=== PATIENT | female | born 1995 | race Caucasian/White ===

== ENCOUNTER 2016-07-31 18:13 | Emergency (ER) | payer OTHER ==
[~2016-07-31] VITALS: Ht 157.5 cm; Wt 54.9 kg
[2016-07-31 18:31] VITALS: TEMP 37.4; Ht 157.5 cm; Wt 54.9 kg
[2016-07-31] MEDS ORDERED: SODIUM CHLORIDE 0.9% 1000ML 1,000 ML IV STA (19:55)
[2016-07-31] MEDS ORDERED: KETOROLAC TROMETHAMINE 30 MG/ML VIAL IV STA (20:12)
[2016-07-31] MEDS ORDERED: AZITTAB PO (20:18)
[2016-07-31] MEDS ORDERED: DEXT1CAP8 (20:18)
--- NOTE | 2016-07-31 20:28 | DIAGNOSTIC IMAGING REPORT ---
CHEST ONE VIEW PORTABLE CLINICAL HISTORY: Fever. COMPARISON STUDY: No previous studies for comparison. FINDINGS: The patient is rotated. No pneumothorax or pleural effusion is present. Slight asymmetric opacity projecting over the right lower lung is likely artifactual. No consolidation is identified and there is no evidence of pulmonary edema. Cardiac size is normal. There is mild S-shaped curvature of the thoracic spine. IMPRESSION: 1. No acute findings. 2. Mild S-shaped curvature of the thoracic spine. Electronically signed by: Guzman Dougherty M.D. 07/31/2016 8:26 PM Dictated Date/Time: 07/31/2016 8:26 PM
[2016-07-31 20:59] LABS: BASO % 0.2 %; BASO ABS # 0.01 K/uL (0-0.2); COMPLETE YES; EOS % 2.1 %; HEMATOCRIT 40.9 % (37-47); LYMPH ABS # 1.49 K/uL (1.2-3.4); MEAN CELL VOLUME 85.7 fL (80-100); MEAN CORPUSCULAR HEMOGLOBIN 31.2 pg (25-34); MEAN CORPUSCULAR HGB CONC 36.4 g/dl (32-36); MEAN PLATELET VOLUME 9.9 fL (7.4-10.4); MONO % 11.4 %; NEUT % 58.3 %; PLATELET COUNT 184 K/uL (130-400); RED BLOOD COUNT 4.77 M/uL (4.2-5.4); WHITE BLOOD COUNT 5.33 K/uL (4.8-10.8)
[2016-07-31 21:18] LABS: BUN/CREATININE RATIO 17.6 (10-20); CALCIUM 9.5 mg/dl (8.5-10.1); CREATININE 0.71 mg/dl (0.60-1.20); POTASSIUM 3.6 mmol/L (3.5-5.1)
[2016-07-31 22:23] LABS: URINE APPEARANCE CLOUDY (CLEAR); URINE BILIRUBIN NEG (NEG); URINE COLOR DK YELLOW; URINE EPITHELIAL CELL AUTO >30 /lpf (0-5); URINE NITRITE NEG (NEG); URINE PH 5.5 (4.5-7.5); URINE SPECIFIC GRAVITY 1.028 (1.000-1.030); UROBILINOGEN NEG (NEG); ZZUR CULT IF INDIC CLEAN CATCH YES
[2016-07-31 22:25] LABS: MANUAL MICROSCOPIC REQUIRED? NO; REVIEW REQ? YES
[2016-07-31 22:41] LABS: URINE MUCUS PRESENT (NONE PRSENT)
[2016-07-31 22:42] LABS: URINE PATH CASTS EPITHELIAL CASTS /lpf (0)
[2016-08-01 00:56] LABS: CSF TOTAL PROTEIN 52.9 mg/dl (15.0-45.0)
[2016-08-01 01:04] LABS: CSF CHEMISTRY TUBE # 2
[2016-08-01 01:30] LABS: CSF APPEARANCE CLEAR; CSF COLOR COLORLESS; CSF XANTHOCHROMIC NO XANTHOCHROMIA
[2016-08-01 01:40] VITALS: BP 110/72; PULSE 70; O2SAT 97
--- NOTE | 2016-08-01 02:45 | EMERGENCY ROOM VISIT NOTE ---
History Report prepared by Dmitriy: Nando Ramirez Under the Supervision of: Dr. Derian Pascual M.D. First contact with patient: 19:55 Chief Complaint: ILLNESS Stated Complaint: INABILITY TO KEEP HEAD UP AND EYES OPEN AND RESPON History of Present Illness The patient is a 20 year old female who presents to the Emergency Room with complaints of a constant illness starting four days ago. The patient currently rates her discomfort as a 7/10 in severity. The patient states that she went to [facility], however she sates that they did not diagnose her with anything, however they did give her azithromycin. The patient states that after taking the azithromycin, she has been feeling worse. The patient additionally states that she has episodes during which she is not able to hold her head up, open her eyes, she gets short of breath, and she gets very dizzy. The patient sates that she has been having a headache, neck pain in the back and sides, sorethroat , and overall body aches. The patient denies anyone around her being sick. Pt denies LOC, fevers, chills, diaphoresis, visual changes, chest pain, nausea, vomiting, abdominal pain, back pain, melena, hematochezia, urinary symptoms, numbness, weakness, lymphadenopathy, rash, or other complaints. Source of History: patient Onset: four days ago Position: other (global) Symptom Intensity: 7/10 Quality: other (illness) Timing: constant Associated Symptoms: + SOB, + neck pain, + sorethroat Note: Associated symptoms: Body aches, unable to hold head up and eyes open Review of Systems See HPI for pertinent positives and negatives. A total of ten systems were reviewed and were otherwise negative. Past Medical & Surgical Medical Problems: (1) No Known Active Medical Problems Social History Smoking Status: Never Smoker Marital Status: single Occupation Status: [employer] Current/Historical Medications Scheduled Azithromycin (Zithromax Z-Srini), 1 PKT PO UD Control Pills ( Control Pills), 1 TAB PO DAILY Tlfxduvvtofjgzgl-Tyiijxeuvv-Dq (Vicks Nyquil Cold & Flu), 2 TABS QPM Allergies Coded Allergies: Amoxicillin (Verified Allergy, Unknown, HAD REACTION BEFORE 2 YR OLD, 07/31) Penicillins (Verified Allergy, Unknown, CHILDHOD REACTION, 1/19/17) Physical Exam Vital Signs Date Time Temp Pulse Resp B/P Pulse Ox O2 Delivery O2 Flow Rate FiO2 08/01/16 01:40 70 18 110/72 97 Room Air 07/31/16 23:44 69 07/31/16 23:40 73 16 119/72 98 Room Air 07/31/16 18:31 37.4 115 18 117/69 94 Room Air Physical Exam GENERAL: Awake, alert, well-appearing, in no distress HENT: Right TM occluded by cerumen Normocephalic, atraumatic. Oropharynx unremarkable. EYES: Normal conjunctiva. Sclera non-icteric. NECK: Mild anterior cervical adenopathy. Supple. Mild nuchal rigidity. FROM. No JVD. RESPIRATORY: Clear to auscultation. CARDIAC: Regular rate, normal rhythm. Extremities warm and well perfused. Pulses equal. ABDOMEN: Soft, non-distended. No tenderness to palpation. No rebound or guarding. No masses. RECTAL: Deferred. MUSCULOSKELETAL: Chest examination reveals no tenderness. The back is symmetrical on inspection without obvious abnormality. There is left CVA tenderness to palpation. No joint edema. LOWER EXTREMITIES: Calves are equal size bilaterally and non-tender. No edema. No discoloration. NEURO: Normal sensorium. No sensory or motor deficits noted. SKIN: No rash or jaundice noted. Medical Decision & Procedures ER Provider Diagnostic Interpretation: X-ray: Per my interpretation, radiologist review. CHEST ONE VIEW PORTABLE CLINICAL HISTORY: Fever. COMPARISON STUDY: No previous studies for comparison. FINDINGS: The patient is rotated. No pneumothorax or pleural effusion is present. Slight asymmetric opacity projecting over the right lower lung is likely artifactual. No consolidation is identified and there is no evidence of pulmonary edema. Cardiac size is normal. There is mild S-shaped curvature of the thoracic spine. IMPRESSION: 1. No acute findings. 2. Mild S-shaped curvature of the thoracic spine. Electronically signed by: Guzman Dougherty M.D. 07/31/2016 8:26 PM Dictated Date/Time: 07/31/2016 8:26 PM Laboratory Results 07/31/16 20:41 Red Blood Count 4.77, Mean Corpuscular Volume 85.7, Mean Corpuscular Hemoglobin 31.2, Mean Corpuscular Hemoglobin Concent 36.4, Mean Platelet Volume 9.9, Neutrophils (%) (Auto) 58.3, Lymphocytes (%) (Auto) 28.0, Monocytes (%) (Auto) 11.4, Eosinophils (%) (Auto) 2.1, Basophils (%) (Auto) 0.2, Neutrophils # (Auto ) 3.11, Lymphocytes # (Auto) 1.49, Monocytes # (Auto) 0.61, Eosinophils # (Auto ) 0.11, Basophils # (Auto) 0.01 07/31/16 20:41 Test 07/31/16 20:41 07/31/16 21:50 08/01/16 00:33 White Blood Count 5.33 K/uL (4.8-10.8) Red Blood Count 4.77 M/uL (4.2-5.4) Hemoglobin 14.9 g/dL (12.0-16.0) Hematocrit 40.9 % (37-47) Mean Corpuscular Volume 85.7 fL (80-100) Mean Corpuscular Hemoglobin 31.2 pg (25-34) Mean Corpuscular Hemoglobin Concent 36.4 g/dl (32-36) Platelet Count 184 K/uL (130-400) Mean Platelet Volume 9.9 fL (7.4-10.4) Neutrophils (%) (Auto) 58.3 % Lymphocytes (%) (Auto) 28.0 % Monocytes (%) (Auto) 11.4 % Eosinophils (%) (Auto) 2.1 % Basophils (%) (Auto) 0.2 % Neutrophils # (Auto) 3.11 K/uL (1.4-6.5) Lymphocytes # (Auto) 1.49 K/uL (1.2-3.4) Monocytes # (Auto) 0.61 K/uL (0.11-0.59) Eosinophils # (Auto) 0.11 K/uL (0-0.5) Basophils # (Auto) 0.01 K/uL (0-0.2) RDW Standard Deviation 38.0 fL (36.4-46.3) RDW Coefficient of Variation 12.1 % (11.5-14.5) Immature Granulocyte % (Auto) 0.0 % Immature Granulocyte # (Auto) 0.00 K/uL (0.00-0.02) Anion Gap 11.0 mmol/L (3-11) Est Creatinine Clear Calc Drug Dose 100.8 ml/min Estimated GFR () 143.1 Estimated GFR (Non- 123.5 BUN/Creatinine Ratio 17.6 (10-20) Calcium Level 9.5 mg/dl (8.5-10.1) Total Bilirubin 2.1 mg/dl (0.2-1) Direct Bilirubin 0.3 mg/dl (0-0.2) Aspartate Amino Transf (AST/SGOT) 18 U/L (15-37) Alanine Aminotransferase (ALT/SGPT) 19 U/L (12-78) Alkaline Phosphatase 60 U/L (45-117) Total Protein 7.2 gm/dl (6.4-8.2) Albumin 4.2 gm/dl (3.4-5.0) Lipase 103 U/L (73-393) Monoscreen NEG (NEG) Urine Color DK YELLOW Urine Appearance CLOUDY (CLEAR) Urine pH 5.5 (4.5-7.5) Urine Specific Anthon 1.028 (1.000-1.030) Urine Protein NEG (NEG) Urine Glucose (UA) NEG (NEG) Urine Ketones TRACE (NEG) Urine Occult Blood NEG (NEG) Urine Nitrite NEG (NEG) Urine Bilirubin NEG (NEG) Urine Urobilinogen NEG (NEG) Urine Leukocyte Esterase SMALL (NEG) Urine WBC (Auto) 10-30 /hpf (0-5) Urine RBC (Auto) 5-10 /hpf (0-4) Urine Hyaline Casts (Auto) 1-5 /lpf (0-5) Urine Epithelial Cells (Auto) >30 /lpf (0-5) Urine Bacteria (Auto) 2+ (NEG) Urine Renal Epithelial Cells /lpf (0-5) Urine Pathogenic Casts EPITHELIAL CASTS /lpf (0) Urine Mucus PRESENT (NONE PRSENT) CSF Color COLORLESS CSF Appearance CLEAR CSF WBC 0 /uL (0-5) CSF RBC 0 /uL (0) CSF Xanthrochromic NO XANTHOCHROMIA CSF Cell Count Tube # 4 CSF Chemistry Tube # 2 CSF Glucose 45 mg/dl (40-70) CSF Total Protein 52.9 mg/dl (15.0-45.0) Laboratory results reviewed by me Medications Administered Medications (Trade) Dose Ordered Sig/Judy Route Start Time Stop Time Status Last Admin Dose Admin Sodium Chloride (Nss 1000ml) 1,000 ml @ 999 mls/hr Q1H1M STAT IV 07/31/16 19:55 07/31/16 20:55 DC 07/31/16 20:48 999 MLS/HR Ketorolac Tromethamine (Toradol Inj) 30 mg NOW STAT IV 07/31/16 20:12 07/31/16 20:13 DC 07/31/16 20:48 30 MG Procedure Lumbar Puncture Indication: headache and flu-like symptoms. Verbal consent was obtained after the risks and benefits were explained, including but not limited to headache, bleeding/clotting, scarring, infection, pain, and bone/joint/nerve damage. At this time, the risks of the procedure are less than the risks of NOT performing the procedure. A time out was taken and the correct patient and site identified. The patient was placed in the left lateral decubitus position and the back was prepped with betadine and draped in the standard fashion. The L3 intervertebral space was identified, anesthetized locally with 1% lidocaine without epinephrine, and the spinal needle was inserted through the skin with the bevel parallel to the dural fibers. The needle was carefully advanced into the lumbar cistern and 4 tubes of clear CSF was obtained. The stylet was replaced and the needle was removed. A bandaid was placed and the patient was placed in the supine position. The patient tolerated the procedure well and there were no complications. ED Course 1953: The patient was evaluated in room B3. A complete history and physical exam was performed. 1954: Sodium Chloride 1000 ml @ 999 mls/hr IV 2011: Toradol Inj 30mg IV 2255: I reevaluated the patient, and she was resting 0148: I reevaluated the patient. Discussed results and discharge instructions: She verbalized understanding and agreement. The patient is ready for discharge. Medical Decision Triage Nursing notes reviewed. The patient's presentation and history were concerning for flulike symptoms and headache with neck pain. Etiologies such as viral syndrome, otitis, pharyngitis, pneumonia, urinary tract infection, sepsis, bacteremia, meningitis, as well as others were entertained. The patient was evaluated. She noted worsening symptoms since her initial visit to the urgent care center. She had a headache and neck pain. She notes feeling feverish. There was some concern for possible meningitis. The patient had an unremarkable CBC, chemistry panel, LFTs and lipase. Mild elevation of bilirubin functions. The patient has a normal chest x-ray. Appling testing was negative. Urinalysis was slightly abnormal however the patient has no urinary symptoms. This may be possible contaminant. Culture is pending. The patient consented to lumbar puncture. She underwent lumbar puncture. This revealed an unremarkable white and red cell count. The patient had a normal Gram stain. Protein was slightly elevated but not grossly abnormal. The patient had a normal glucose. I suspect the patient is dealing with a viral syndrome. Conservative management was discussed. I gave my usual and customary discussion regarding this issue. By the evaluation outlined above other emergent etiologies such as those listed in the differential, as well as others, were deemed relatively unlikely. The patient was informed about the findings as listed above. All questions were answered and she was pleased with the treatment. Return instructions were outlined and the patient was discharged in stable condition. The patient was referred to [facility] for follow-up for a recheck of the current condition. The chart was completed utilizing [employer] voice recognition software. Grammatical errors, random word insertions, pronoun errors, and incomplete sentences are an occasional consequence of this system due to software limitations, ambient noise, and hardware issues. Any formal questions or concerns about the content, text, or information contained within the body of this dictation should be directly addressed to the physician for clarification. Impression Primary Impression: Viral syndrome Additional Impressions: Neck pain Headache Scribe Attestation The scribe's documentation has been prepared under my direction and personally reviewed by me in its entirety. I confirm that the note above accurately reflects all work, treatment, procedures, and medical decision making performed by me. Departure Information Dispostion Home / Self-Care Referrals No Doctor, Assigned (PCP) Forms HOME CARE DOCUMENTATION FORM, IMPORTANT VISIT INFORMATION, WORK / SCHOOL INSTRUCTIONS Patient Instructions My [facility] Additional Instructions Diagnosis: 1. Viral syndrome 2. Headache Continue current medication. Acetaminophen(Tylenol) may be used for fever or pain. Use 1000mg every six hours as needed. Avoid using more than 4000mg in a 24 hour period. (AND/OR) Ibuprofen(Motrin, Advil) may be used for fever or pain. Use 600mg every six hours as needed. Take with food. Avoid using more than 2400mg in a 24 hour period. Do not use 2400mg per day for more than three consecutive days without physician direction. Prolonged inappropriate use can lead to stomach upset or ulcers. Rest and drink plenty of fluids. Controlling your fever with Tylenol and Ibuprofen as above will make you feel better. Wash your hands after nose blowing, sneezing, or coughing. Most germs are spread through contact, therefore improper hygiene may result in your close contacts and loved ones becoming ill just like you. Return to the ER for severe headache, neck stiffness, chest pain, difficulty breathing, fevers, vomiting, abdominal pain, urinary discomfort or symptoms, worsening of your condition, or as needed. Call back to the emergency Department tomorrow afternoon for urine culture results. The numbers [phone]. Follow up with [facility] this week for a recheck of your current condition. Problem Qualifiers
[2016-08-02] MEDS ORDERED: ACET-1256 PO (15:01)
== END 2016-08-01 01:59 | disposition home or self-care (01) ==
LOC: C.EDB 18:16
DX: B34.8 Other viral infections of unspecified site (principal); M54.2 Cervicalgia; R51 Headache; Z79.3 Long term (current) use of hormonal contraceptives; Z88.0 Allergy status to penicillin; Z88.1 Allergy status to other antibiotic agents

== ENCOUNTER 2016-08-02 14:48 | Emergency (ER) | payer OTHER ==
[~2016-08-02] VITALS: Ht 157.5 cm; Wt 55.2 kg
[~2016-08-02 14:48] MED LIST: AZITTAB PO; DEXT1CAP8
[2016-08-02 14:54] VITALS: TEMP 36.7; Ht 157.5 cm; Wt 55.2 kg
[2016-08-02] MEDS ORDERED: ACET-1256 PO (15:01)
[2016-08-02] MEDS ORDERED: SODIUM CHLORIDE 0.9% 1000ML 1,000 ML IV STA (15:04)
[2016-08-02] MEDS ORDERED: KETOROLAC TROMETHAMINE 30 MG/ML VIAL IV STA (15:04)
[2016-08-02] MEDS ORDERED: ACETAMINOPHEN 500 MG TAB PO STA (15:04)
[2016-08-02] MEDS ORDERED: OPTIRAY 320 IV PRN (15:15)
--- NOTE | 2016-08-02 15:27 | EMERGENCY ROOM VISIT NOTE ---
History Report prepared by Dmitriy: Castro Santiago Under the Supervision of: Dr. Dontae Ceja M.D. First contact with patient: 14:59 Chief Complaint: PAIN (GENERALIZED) Stated Complaint: BACK,NECK PAIN, HERE THURSDAY History of Present Illness The patient is a 20 year old female who presents to the Emergency Room with complaints of a constant headache for the past three days. There are no factors that make the headaches better or worse. She also complains of dizziness. The patient also has pain in her neck and between her shoulders. She has been taking Tylenol for pain. The patient has minimal coughing and congestion, which started five days ago. She denies any sore throats. The patient was in the ED two days ago for the same headache. She had a negative lumbar puncture at that time. She was started on Zithromax. The patient's symptoms have not improved since her last ED visit. Source of History: patient Onset: three days Position: head Timing: constant Modifying Factors (Worsening): other (none) Modifying Factors (Relieving): other (none) Associated Symptoms: + cough, + neck pain, No sorethroat Review of Systems See HPI for pertinent positives & negatives. A total of 10 systems reviewed and were otherwise negative. Past Medical & Surgical Medical Problems: (1) No known health problems Family History Diabetes mellitus FH: cancer FH: gallbladder disease FH: heart disease Hypertension Kidney disease Social History Smoking Status: Never Smoker Marital Status: single Housing Status: lives with roommate Occupation Status: [employer] student Current/Historical Medications Scheduled Acetaminophen (Tylenol), 1,000 MG PO PRN UD Azithromycin (Zithromax Z-Srini), 1 PKT PO UD Control Pills ( Control Pills), 1 TAB PO DAILY Nvhnnzjrhtjzgimk-Jaoyqxqrgi-Nz (Vicks Nyquil Cold & Flu), 2 TABS QPM Allergies Coded Allergies: Amoxicillin (Verified Allergy, Unknown, HAD REACTION BEFORE 2 YR OLD, 07/31) Penicillins (Verified Allergy, Unknown, CHILDHOD REACTION, 07/31/16) Physical Exam Vital Signs Date Time Temp Pulse Resp B/P Pulse Ox O2 Delivery O2 Flow Rate FiO2 08/02/16 17:26 66 16 105/67 98 Room Air 08/02/16 16:49 71 20 114/45 100 Room Air 08/02/16 15:15 76 16 109/57 99 Room Air 87 113/71 96 120/94 08/02/16 14:54 36.7 90 18 120/80 99 Room Air Physical Exam CONSTITUTIONAL: Mild distress. HEENT: No icterus, moist mucous membranes NECK: Pain with movement of neck but no clear meningismus at this time. Trachea is midline. CARDIOVASCULAR: Regular rate, normal perfusion RESPIRATORY: Unlabored breathing. Clear to auscultation. GASTROINTESTINAL: Non-tender GENITOURINARY: No flank tenderness MUSCULOSKELETAL: Full range of motion NEUROLOGIC: No acute gross focal deficits. PSYCHIATRIC: Normal affect SKIN: Normal for ethnicity. Medical Decision & Procedures ER Provider Diagnostic Interpretation: X-ray results as stated below per my interpretation and radiologist interpretation. Other radiology results as stated below per my review and radiologist interpretation. CT OF THE HEAD WITHOUT CONTRAST CLINICAL HISTORY: Headache. Viral syndrome. Recent lumbar puncture. COMPARISON STUDY: No previous studies for comparison. TECHNIQUE: Helical axial images of the head were obtained without IV contrast. Automated exposure control was utilized for the study. FINDINGS: No acute intracranial hemorrhage, midline shift or mass effect is present. Brain volume is normal. Ventricular system is normal. The basilar cisterns are patent. There are no extra-axial collections. Tanner-white differentiation is maintained. There are no findings to suggest acute territorial infarct. There is minimal mucosal thickening of the sphenoid sinuses. Visualized portions of the mastoid air cells are clear. There are no calvarial abnormalities. IMPRESSION: No acute intracranial findings. Electronically signed by: Guzman Dougherty M.D. 08/02/2016 4:41 PM Dictated Date/Time: 08/02/2016 4:[address] VENOGRAM OF THE HEAD WITH CONTRAST CLINICAL HISTORY: Headache. Neck pain. COMPARISON STUDY: No previous studies for comparison. TECHNIQUE: Axial images of the head were obtained during venous phase following intravenous injection of 94 cc of Optiray 320 IV. Sagittal and coronal reconstructions were viewed as well as maximal intensity projections on an independent 3-D workstation. FINDINGS: The ventricular system is normal. Brain volume is normal. No acute intracranial hemorrhage, midline shift or mass effect is present. There is mild mucosal thickening of the sinuses. Mastoid air cells are clear. This study was not performed as a CTA protocol but no intracranial aneurysm is identified. The superior sagittal sinus is patent. The inferior sagittal sinus and straight sinuses are patent. The transverse and sigmoid sinuses are patent. No dural sinus thrombus is identified. The right vertebral artery is dominant. The bilateral M1, M2, A1 and A2 segments are patent. IMPRESSION: Unremarkable CTV of the head. No dural sinus thrombosis identified. Electronically signed by: Guzman Dougherty M.D. 08/02/2016 4:46 PM Dictated Date/Time: 08/02/2016 4:41 PM CHEST ONE VIEW PORTABLE CLINICAL HISTORY: Chest pain. Anxiety. COMPARISON STUDY: Chest radiograph July 31, 2016 per FINDINGS: There is mild rightward curvature of the thoracic spine. No pneumothorax or pleural effusion is present. Slight asymmetric opacity within the right lung likely reflects overlying soft tissues. There is no consolidation or evidence of pulmonary edema. Cardiomediastinal silhouette is normal. IMPRESSION: No acute cardiopulmonary findings. Electronically signed by: Guzman Dougherty M.D. 08/02/2016 5:03 PM Dictated Date/Time: 08/02/2016 5:02 PM Laboratory Results 08/02/16 15:30 Red Blood Count 4.91, Mean Corpuscular Volume 87.8, Mean Corpuscular Hemoglobin 32.0, Mean Corpuscular Hemoglobin Concent 36.4, Mean Platelet Volume 9.7, Neutrophils (%) (Auto) 49.5, Lymphocytes (%) (Auto) 34.4, Monocytes (%) (Auto) 10.4, Eosinophils (%) (Auto) 5.0, Basophils (%) (Auto) 0.5, Neutrophils # (Auto ) 2.00, Lymphocytes # (Auto) 1.39, Monocytes # (Auto) 0.42, Eosinophils # (Auto ) 0.20, Basophils # (Auto) 0.02 08/02/16 15:30 Test 08/02/16 15:30 08/02/16 15:40 08/02/16 17:28 White Blood Count 4.04 K/uL (4.8-10.8) Red Blood Count 4.91 M/uL (4.2-5.4) Hemoglobin 15.7 g/dL (12.0-16.0) Hematocrit 43.1 % (37-47) Mean Corpuscular Volume 87.8 fL (80-100) Mean Corpuscular Hemoglobin 32.0 pg (25-34) Mean Corpuscular Hemoglobin Concent 36.4 g/dl (32-36) Platelet Count 199 K/uL (130-400) Mean Platelet Volume 9.7 fL (7.4-10.4) Neutrophils (%) (Auto) 49.5 % Lymphocytes (%) (Auto) 34.4 % Monocytes (%) (Auto) 10.4 % Eosinophils (%) (Auto) 5.0 % Basophils (%) (Auto) 0.5 % Neutrophils # (Auto) 2.00 K/uL (1.4-6.5) Lymphocytes # (Auto) 1.39 K/uL (1.2-3.4) Monocytes # (Auto) 0.42 K/uL (0.11-0.59) Eosinophils # (Auto) 0.20 K/uL (0-0.5) Basophils # (Auto) 0.02 K/uL (0-0.2) RDW Standard Deviation 39.2 fL (36.4-46.3) RDW Coefficient of Variation 12.2 % (11.5-14.5) Immature Granulocyte % (Auto) 0.2 % Immature Granulocyte # (Auto) 0.01 K/uL (0.00-0.02) Anion Gap 8.0 mmol/L (3-11) Est Creatinine Clear Calc Drug Dose 94.2 ml/min Estimated GFR () 131.8 Estimated GFR (Non- 113.7 BUN/Creatinine Ratio 14.1 (10-20) Calcium Level 9.4 mg/dl (8.5-10.1) Total Creatine Kinase 68 U/L (26-192) Human Chorionic Gonadotropin, Qual NEG (NEG) Influenza Type A Antigen Neg for Influ A (NEG) Influenza Type B Antigen Neg for Influ B (NEG) Urine Opiates Screen NEG (NEG) Urine Methadone, Qualitative NEG (NEG) Urine Barbiturates NEG (NEG) Urine Phencyclidine (PCP) Level NEG (NEG) Ur Amphetamine/Methamphetamine NEG (NEG) MDMA (Ecstasy) Screen NEG (NEG) Urine Benzodiazepines Screen NEG (NEG) Urine Cocaine Metabolite NEG (NEG) Urine Marijuana (THC) NEG (NEG) Labs reviewed by ED physician. Medications Administered Medications (Trade) Dose Ordered Sig/Judy Route Start Time Stop Time Status Last Admin Dose Admin Acetaminophen 1000 mg 1,000 mg NOW STAT PO 08/02/16 15:04 08/02/16 15:06 DC 08/02/16 15:36 1,000 MG Sodium Chloride (Nss 1000ml) 1,000 ml @ 0 mls/hr Q0M STAT IV 08/02/16 15:04 08/02/16 15:07 DC 08/02/16 15:37 999 MLS/HR Ketorolac Tromethamine (Toradol Inj) 30 mg NOW STAT IV 08/02/16 15:04 08/02/16 15:07 DC 08/02/16 15:37 30 MG ECG Indication: chest pain Rate (beats per minute): 62 Rhythm: normal sinus Findings: no acute ischemic change, no ectopy ED Course 1503: The patient was evaluated by the [employer] medical student. 1504: Toradol 30 mg IV, NSS 1000 ml wide open, Tylenol 1000 mg PO. 1517: Past medical records reviewed. The patient was evaluated in room C9. A complete history and physical examination was performed. 1725: The patient is having pain in her chest. 1805: Reassessed the patient. Explained the findings to her. She verbalized understanding and agreement of the treatment plan. The patient is ready for discharge. Medical Decision Differential diagnosis: viral syndrome, dural thrombosis. 20-year-old presents into the emergency department with her parents for evaluation of persistent viral like symptoms including headache. She is noted to be in the emergency department recently with normal spinal tap and lab work. She notes moderate diffuse headache and bilateral neck discomfort without signs of meningismus and without evidence of toxicity. HEENT exam notable for mild erythema bilaterally with possible minimal exudates and minimal symmetric edema. EBV antibodies sent. (-) CT Head w/ contrast r/o dural thrombosis. Patient later complained of diffuse chest pain, as well, and CXR and EKG WNL. I informed patient and parents of likely viral syndrome importance of taking Tylenol Motrin every 6 hours. She is provided a school at her request. She clearly understands to return for any worsening or worrisome symptoms. Impression Primary Impression: Viral syndrome Scribe Attestation The scribe's documentation has been prepared under my direction and personally reviewed by me in its entirety. I confirm that the note above accurately reflects all work, treatment, procedures, and medical decision making performed by me. Departure Information Dispostion Home / Self-Care Referrals No Doctor, Assigned (PCP) Forms HOME CARE DOCUMENTATION FORM, IMPORTANT VISIT INFORMATION, WORK / SCHOOL INSTRUCTIONS Patient Instructions ED Viral Syndrome, My [facility] Additional Instructions Take Tyelnol 650mg and Motrin 600mg together at the same time every 6 hours as needed for pain.
[2016-08-02 15:45] LABS: BASO % 0.5 %; BASO ABS # 0.02 K/uL (0-0.2); COMPLETE YES; HEMATOCRIT 43.1 % (37-47); IG% 0.2 %; LYMPH % 34.4 %; LYMPH ABS # 1.39 K/uL (1.2-3.4); MEAN CELL VOLUME 87.8 fL (80-100); MEAN CORPUSCULAR HGB CONC 36.4 g/dl (32-36); MEAN PLATELET VOLUME 9.7 fL (7.4-10.4); MONO % 10.4 %; NEUT % 49.5 %; PLATELET COUNT 199 K/uL (130-400); RED BLOOD COUNT 4.91 M/uL (4.2-5.4); WHITE BLOOD COUNT 4.04 K/uL (4.8-10.8)
[2016-08-02 16:03] LABS: BUN/CREATININE RATIO 14.1 (10-20); CALCIUM 9.4 mg/dl (8.5-10.1); CREATININE 0.76 mg/dl (0.60-1.20); POTASSIUM 4.1 mmol/L (3.5-5.1)
[2016-08-02 16:04] LABS: PREG INTERNAL NEGATIVE QC NEG CLEAR BACKGROUND; PREG INTERNAL POSITIVE QC POS CONTROL LINE
--- NOTE | 2016-08-02 16:43 | DIAGNOSTIC IMAGING REPORT ---
CT OF THE HEAD WITHOUT CONTRAST CLINICAL HISTORY: Headache. Viral syndrome. Recent lumbar puncture. COMPARISON STUDY: No previous studies for comparison. TECHNIQUE: Helical axial images of the head were obtained without IV contrast. Automated exposure control was utilized for the study. FINDINGS: No acute intracranial hemorrhage, midline shift or mass effect is present. Brain volume is normal. Ventricular system is normal. The basilar cisterns are patent. There are no extra-axial collections. Tanner-white differentiation is maintained. There are no findings to suggest acute territorial infarct. There is minimal mucosal thickening of the sphenoid sinuses. Visualized portions of the mastoid air cells are clear. There are no calvarial abnormalities. IMPRESSION: No acute intracranial findings. Electronically signed by: Guzman Dougherty M.D. 08/02/2016 4:41 PM Dictated Date/Time: 08/02/2016 4:37 PM
--- NOTE | 2016-08-02 16:48 | DIAGNOSTIC IMAGING REPORT ---
CT VENOGRAM OF THE HEAD WITH CONTRAST CLINICAL HISTORY: Headache. Neck pain. COMPARISON STUDY: No previous studies for comparison. TECHNIQUE: Axial images of the head were obtained during venous phase following intravenous injection of 94 cc of Optiray 320 IV. Sagittal and coronal reconstructions were viewed as well as maximal intensity projections on an independent 3-D workstation. FINDINGS: The ventricular system is normal. Brain volume is normal. No acute intracranial hemorrhage, midline shift or mass effect is present. There is mild mucosal thickening of the sinuses. Mastoid air cells are clear. This study was not performed as a CTA protocol but no intracranial aneurysm is identified. The superior sagittal sinus is patent. The inferior sagittal sinus and straight sinuses are patent. The transverse and sigmoid sinuses are patent. No dural sinus thrombus is identified. The right vertebral artery is dominant. The bilateral M1, M2, A1 and A2 segments are patent. IMPRESSION: Unremarkable CTV of the head. No dural sinus thrombosis identified. Electronically signed by: Guzman Dougherty M.D. 08/02/2016 4:46 PM Dictated Date/Time: 08/02/2016 4:41 PM
--- NOTE | 2016-08-02 17:05 | DIAGNOSTIC IMAGING REPORT ---
CHEST ONE VIEW PORTABLE CLINICAL HISTORY: Chest pain. Anxiety. COMPARISON STUDY: Chest radiograph July 31, 2016 per FINDINGS: There is mild rightward curvature of the thoracic spine. No pneumothorax or pleural effusion is present. Slight asymmetric opacity within the right lung likely reflects overlying soft tissues. There is no consolidation or evidence of pulmonary edema. Cardiomediastinal silhouette is normal. IMPRESSION: No acute cardiopulmonary findings. Electronically signed by: Guzman Dougherty M.D. 08/02/2016 5:03 PM Dictated Date/Time: 08/02/2016 5:02 PM
[2016-08-02 17:55] LABS: BENZODIAZEPINE, URINE NEG (NEG); COCAINE,URINE NEG (NEG); PHENCYCLIDINE, URINE NEG (NEG)
[2016-08-02 18:20] VITALS: BP 103/64; PULSE 63; O2SAT 99
[2016-08-05 16:37] LABS: EPSTEIN BARR VIR CAPSID IGG <0.91 INDEX
== END 2016-08-02 18:21 | disposition home or self-care (01) ==
LOC: C.EDB 14:50 → C.EDC 18:21
DX: B34.9 Viral infection, unspecified (principal); Z83.3 Family history of diabetes mellitus; Z82.49 Family history of ischemic heart disease and other diseases of the circulatory system; Z79.3 Long term (current) use of hormonal contraceptives

== ENCOUNTER 2016-10-31 18:47 | Emergency (ER) | payer OTHER ==
[~2016-10-31] VITALS: Ht 157.5 cm; Wt 54.3 kg
[~2016-10-31 18:47] MED LIST changes: +ACET-1256 PO
[2016-10-31 18:55] VITALS: TEMP 39.3; Ht 157.5 cm; Wt 54.3 kg
[2016-10-31] MEDS ORDERED: BCPILLS PO (20:18)
[2016-10-31] MEDS ORDERED: ACETAMINOPHEN 500 MG TAB PO STA (20:39)
[2016-10-31] MEDS ORDERED: KETOROLAC TROMETHAMINE 30 MG/ML VIAL IV STA (20:39)
[2016-10-31] MEDS ORDERED: SODIUM CHLORIDE 0.9% 1000ML 2,000 ML IV STA (20:39)
[2016-10-31 20:47] LABS: COMPLETE YES; HEMATOCRIT 37.4 % (37-47); LYMPH % 15.5 %; LYMPH ABS # 1.14 K/uL (1.2-3.4); MEAN CORPUSCULAR HEMOGLOBIN 31.4 pg (25-34); MEAN CORPUSCULAR HGB CONC 35.3 g/dl (32-36); MEAN PLATELET VOLUME 9.8 fL (7.4-10.4); MONO % 16.2 %; NEUT % 68.3 %; PLATELET COUNT 154 K/uL (130-400); WHITE BLOOD COUNT 7.35 K/uL (4.8-10.8)
--- NOTE | 2016-10-31 20:54 | DIAGNOSTIC IMAGING REPORT ---
CHEST ONE VIEW PORTABLE CLINICAL HISTORY: cp dyspnea COMPARISON STUDY: 08/02/2016 FINDINGS: The bones soft tissues and hemidiaphragms are normal. The cardiomediastinal silhouette is normal. The lungs are clear. The pulmonary vasculature is normal. IMPRESSION: Negative chest. Electronically signed by: Francis Pickering M.D. 10/31/2016 8:52 PM Dictated Date/Time: 10/31/2016 8:51 PM
[2016-10-31 21:04] LABS: BUN/CREATININE RATIO 8.8 (10-20); CALCIUM 8.7 mg/dl (8.5-10.1); CREATININE 0.73 mg/dl (0.60-1.20); POTASSIUM 3.4 mmol/L (3.5-5.1)
[2016-10-31] MEDS ORDERED: IBUP-103 PO (21:27)
[2016-10-31 23:38] LABS: CSF CHEMISTRY TUBE # 3
[2016-10-31 23:42] LABS: CSF TOTAL PROTEIN 41.3 mg/dl (15.0-45.0)
[2016-10-31 23:46] LABS: CSF APPEARANCE CLEAR; CSF COLOR COLORLESS; CSF XANTHOCHROMIC NO XANTHOCHROMIA
[2016-11-01 01:04] LABS: URINE APPEARANCE CLEAR (CLEAR); URINE BILIRUBIN NEG (NEG); URINE COLOR YELLOW; URINE EPITHELIAL CELL AUTO >30 /lpf (0-5); URINE NITRITE NEG (NEG); URINE PH 8.5 (4.5-7.5); URINE SPECIFIC GRAVITY 1.014 (1.000-1.030); UROBILINOGEN NEG (NEG); ZZUR CULT IF INDIC CLEAN CATCH YES
[2016-11-01 01:06] LABS: MANUAL MICROSCOPIC REQUIRED? NO; REVIEW REQ? NO
[2016-11-01] MEDS ORDERED: CEPH500C PO (01:24)
[2016-11-01] MEDS ORDERED: CEPHALEXIN MONOHYDRATE 250 MG CAP PO ONE (01:30)
[2016-11-01 01:35] VITALS: BP 115/56; PULSE 90; O2SAT 98
--- NOTE | 2016-11-01 02:48 | EMERGENCY ROOM VISIT NOTE ---
History Report prepared by Dmitriy: Karl Roach Under the Supervision of: Dr. Jorje Laura D.O. First contact with patient: 20:27 Chief Complaint: PAIN (GENERALIZED) Stated Complaint: FULL BODY SHARP PAINS, LARA CHEST/NECK, FEVER History of Present Illness The patient is a 20 year old female who presents to the Emergency Room with complaints of generalized pain beginning 2 days ago. She notes her symptoms began with chest pain, and then she noticed everything was sore, indicating sharp pains throughout her entire body. She then developed a sore throat, posterior neck pain, a headache, and back pain. The headache is noted to be one of the worst she has had. She has had some difficulty breathing and swallowing due to the chest pain. The patient denies any cough, but has had some rhinorrhea , though she notes she has allergies. She adds having some ear discomfort, especially with swallowing. She notes she started having fevers yesterday. The patient was seen at [facility] today and told to come to the ER. Her tonsils were noted to be swollen at [facility]. She denies any abdominal pain, nausea , vomiting, diarrhea, or vaginal discharge. The patient reports a history of ovarian cysts, but has not had one for a while. She last took Advil at 0530 this morning. She notes she was here 3 months ago with the same symptoms though without the sore throat. Source of History: patient Onset: 2 days ago Position: other (global) Quality: other (generalized pain) Timing: other (persistent) Associated Symptoms: + SOB, + back pain, + chest pain, + fevers, + headache , + neck pain, No abdominal pain, No cough, No diarrhea, No nausea, No vomiting Note: Patient also reports ear discomfort and rhinorrhea. Review of Systems See HPI for pertinent positives & negatives. A total of 10 systems reviewed and were otherwise negative. Past Medical & Surgical Medical Problems: (1) History of ovarian cyst (2) No known health problems Family History Diabetes mellitus FH: cancer FH: gallbladder disease FH: heart disease Hypertension Kidney disease Social History Smoking Status: Never Smoker Marital Status: single Housing Status: lives with roommate Occupation Status: [employer] student Current/Historical Medications Scheduled Control Pills ( Control Pills), 1 TAB PO DAILY Cephalexin Monohydrate (Keflex), 500 MG PO TID Scheduled PRN Ibuprofen Tab (Advil), 400 MG PO Q6H PRN for Pain or Fever Allergies Coded Allergies: Amoxicillin (Verified Allergy, Unknown, HAD REACTION BEFORE 2 YR OLD, 07/31) Penicillins (Verified Allergy, Unknown, CHILDHOD REACTION, 07/31/16) Physical Exam Vital Signs Date Time Temp Pulse Resp B/P Pulse Ox O2 Delivery O2 Flow Rate FiO2 11/01/16 01:35 90 18 115/56 98 Room Air 11/01/16 00:35 71 16 123/70 98 Room Air 10/31/16 22:49 81 18 134/76 98 Room Air 10/31/16 20:50 74 16 130/82 98 Room Air 10/31/16 18:55 39.3 135 18 106/48 98 Room Air Physical Exam GENERAL: Sitting up in bed, alert, well appearing, well nourished, no distress, non-toxic EYE EXAM: normal conjunctiva, PERRL and EOM's intact EARS: Left TM clear, Right canal with cerumen impaction. OROPHARYNX: no exudate, no erythema, lips, buccal mucosa, and tongue normal and mucous membranes are moist NECK: supple, no nuchal rigidity, no adenopathy, non-tender CHEST: Reproducible anterior chest wall pain. LUNGS: Clear to auscultation. Normal chest wall mechanics HEART: Tachycardic. ABDOMEN: abdomen soft, non-tender, normo-active bowel sounds, no masses, no rebound or guarding. BACK: Back is symmetrical on inspection and there is no deformity, no midline tenderness, no CVA tenderness. SKIN: no rashes and no bruising UPPER EXTREMITIES: upper extremities are grossly normal. LOWER EXTREMITIES: No pitting edema. Calves are equal bilaterally. NEURO EXAM: Normal sensorium, cranial nerves II-XII grossly intact, normal speech, no gross weakness of arms, no gross weakness of legs. Gross sensation intact. Medical Decision & Procedures ER Provider Diagnostic Interpretation: Radiology results as stated below per my review and the radiologist's interpretation: CHEST ONE VIEW PORTABLE FINDINGS: The bones soft tissues and hemidiaphragms are normal. The cardiomediastinal silhouette is normal. The lungs are clear. The pulmonary vasculature is normal. IMPRESSION: Negative chest. Electronically signed by: Francis Pickering M.D. 10/31/2016 8:52 PM Dictated Date/Time: 10/31/2016 8:51 PM Laboratory Results 4/21/17 20:30 Red Blood Count 4.20, Mean Corpuscular Volume 89.0, Mean Corpuscular Hemoglobin 31.4, Mean Corpuscular Hemoglobin Concent 35.3, Mean Platelet Volume 9.8, Neutrophils (%) (Auto) 68.3, Lymphocytes (%) (Auto) 15.5, Monocytes (%) (Auto) 16.2, Eosinophils (%) (Auto) 0.0, Basophils (%) (Auto) 0.0, Neutrophils # (Auto ) 5.02, Lymphocytes # (Auto) 1.14, Monocytes # (Auto) 1.19, Eosinophils # (Auto ) 0.00, Basophils # (Auto) 0.00 10/31/16 20:30 Test 10/31/16 00:00 10/31/16 20:25 10/31/16 20:30 10/31/16 23:00 Influenza Type A Antigen Neg for Influ A (NEG) Influenza Type B Antigen Neg for Influ B (NEG) Urine Color YELLOW Urine Appearance CLEAR (CLEAR) Urine pH 8.5 (4.5-7.5) Urine Specific [place] 1.014 (1.000-1.030) Urine Protein NEG (NEG) Urine Glucose (UA) NEG (NEG) Urine Ketones NEG (NEG) Urine Occult Blood TRACE (NEG) Urine Nitrite NEG (NEG) Urine Bilirubin NEG (NEG) Urine Urobilinogen NEG (NEG) Urine Leukocyte Esterase TRACE (NEG) Urine WBC (Auto) 5-10 /hpf (0-5) Urine RBC (Auto) 10-30 /hpf (0-4) Urine Hyaline Casts (Auto) 0 /lpf (0-5) Urine Epithelial Cells (Auto) >30 /lpf (0-5) Urine Bacteria (Auto) 1+ (NEG) Urine Test NEG (NEG) White Blood Count 7.35 K/uL (4.8-10.8) Red Blood Count 4.20 M/uL (4.2-5.4) Hemoglobin 13.2 g/dL (12.0-16.0) Hematocrit 37.4 % (37-47) Mean Corpuscular Volume 89.0 fL (80-100) Mean Corpuscular Hemoglobin 31.4 pg (25-34) Mean Corpuscular Hemoglobin Concent 35.3 g/dl (32-36) Platelet Count 154 K/uL (130-400) Mean Platelet Volume 9.8 fL (7.4-10.4) Neutrophils (%) (Auto) 68.3 % Lymphocytes (%) (Auto) 15.5 % Monocytes (%) (Auto) 16.2 % Eosinophils (%) (Auto) 0.0 % Basophils (%) (Auto) 0.0 % Neutrophils # (Auto) 5.02 K/uL (1.4-6.5) Lymphocytes # (Auto) 1.14 K/uL (1.2-3.4) Monocytes # (Auto) 1.19 K/uL (0.11-0.59) Eosinophils # (Auto) 0.00 K/uL (0-0.5) Basophils # (Auto) 0.00 K/uL (0-0.2) RDW Standard Deviation 41.0 fL (36.4-46.3) RDW Coefficient of Variation 12.7 % (11.5-14.5) Immature Granulocyte % (Auto) 0.0 % Immature Granulocyte # (Auto) 0.00 K/uL (0.00-0.02) Anion Gap 8.0 mmol/L (3-11) Est Creatinine Clear Calc Drug Dose 98.1 ml/min Estimated GFR () 138.4 Estimated GFR (Non- 119.4 BUN/Creatinine Ratio 8.8 (10-20) Calcium Level 8.7 mg/dl (8.5-10.1) Total Bilirubin 1.1 mg/dl (0.2-1) Direct Bilirubin 0.2 mg/dl (0-0.2) Aspartate Amino Transf (AST/SGOT) 11 U/L (15-37) Alanine Aminotransferase (ALT/SGPT) 12 U/L (12-78) Alkaline Phosphatase 56 U/L (45-117) Total Protein 7.4 gm/dl (6.4-8.2) Albumin 3.7 gm/dl (3.4-5.0) Monoscreen NEG (NEG) CSF Color COLORLESS CSF Appearance CLEAR CSF WBC 0 /uL (0-5) CSF RBC 1300 /uL (0) CSF Xanthrochromic NO XANTHOCHROMIA CSF Cell Count Tube # 4 CSF Chemistry Tube # 3 CSF Glucose 65 mg/dl (40-70) CSF Total Protein 41.3 mg/dl (15.0-45.0) Laboratory results per my review. Medications Administered Medications (Trade) Dose Ordered Sig/Judy Route Start Time Stop Time Status Last Admin Dose Admin Ketorolac Tromethamine 30 mg 30 mg NOW STAT IV 10/31/16 20:39 10/31/16 20:56 DC 10/31/16 21:17 30 MG Sodium Chloride (Nss 1000ml) 2,000 ml @ 999 mls/hr Q2H1M STAT IV 10/31/16 20:39 10/31/16 22:39 DC 10/31/16 21:18 999 MLS/HR Acetaminophen (Tylenol Tab) 1,000 mg NOW STAT PO 10/31/16 20:39 10/31/16 20:56 DC 10/31/16 21:17 1,000 MG Cephalexin Monohydrate (Keflex Cap) 500 mg NOW ONCE PO 11/01/16 01:30 11/01/16 01:31 DC 11/01/16 01:32 500 MG Procedure Lumbar Puncture Indication: Meningitis. Verbal consent was obtained after the risks and benefits were explained, including but not limited to headache, bleeding/clotting, scarring, infection, pain, and bone/joint/nerve damage. At this time, the risks of the procedure are less than the risks of NOT performing the procedure. A time out was taken and the correct patient and site identified. The patient was placed in the lateral recumbent position and the back was prepped with betadine and draped in the standard fashion. The L3 intervertebral space was identified, anesthetized locally with 1% lidocaine without epinephrine, and the spinal needle was inserted through the skin with the bevel parallel to the dural fibers. The needle was carefully advanced into the lumbar cistern and 4 tubes of initial bloody then clear CSF was obtained. The stylet was replaced and the needle was removed. A bandaid was placed and the patient was placed in the supine position. The patient tolerated the procedure well and there were no complications. ECG Indication: other (generalized pain) Rate (beats per minute): 114 Rhythm: sinus tachycardia Findings: RBBB (incomplete), other (normal axis; normal interval) ED Course ED COURSE: Vital signs were reviewed and showed febrile and tachycardic. The patients medical record was reviewed The above diagnostic studies were performed and reviewed. ED treatments and interventions as stated above. 2027: The patient was evaluated in room C9. A complete history and physical examination was performed. 2038: Ordered Acetaminophen 1,000 mg PO, NSS 2,000 ml @ 999 mls/hr IV, and Toradol Inj 30 mg IV. 5: I spoke with Dr. Smith who said that a tap without xanthochromia and low red cells of 1300 is not subarachnoid hemorrhage. 0130: Ordered Keflex Cap 500 mg PO. 0135: Upon reevaluation, the patient is doing well.I discussed my findings with the patient and she understands and agrees with the treatment plan. Based on the patients age, coexisting illnesses, exam and lab findings the decision to treat as an outpatient was made. The patient remained stable while under my care. The patient appeared well at the time of discharge. Medical Decision Differential diagnosis: Etiologies such as viral syndrome, otitis, pharyngitis, pneumonia, influenza, meningitis, urinary tract infection, sepsis, bacteremia, as well as others were entertained. Patient is a 20-year-old female who presents the ER for diffuse myalgias, sore throat, headache, stiff neck and earaches. The symptoms have been present for the past 2 days and worsening. She was seen at [facility] had an unremarkable workup. She had similar symptoms back in July which was viral in nature. CBC was unremarkable. BMP along with LFTs, bilirubin were normal. UA was contaminated with multiple episodes cells was consequently showed bacteria, white cells and esterase. LP was performed following review of her chart which had a previous LP in July and negative CT of her head. LP was traumatic and chemotherapy initially bright red and cleared. No white cells. No xanthochromia. 1300 red cells. Discussed with neurology and they agree that this is atraumatic. Patient was discharged with Keflex for a tonsillitis and instructed to follow up with S. Discussed with Pt concerning signs and symptoms to watch out for. Pt was instructed to follow up with their PCP and discussed with the patient their option to return to the ED at anytime for persistent or worsening symptoms. The appropriate anticipatory guidance and out- patient management, including indications for return to the emergency department , were explained at length to the patient and understood. Consults Time Called: [phone] Consulting Physician: Dr. Smith Returned Call: [phone] Smith who said that a tap without xanthochromia and low red cells of 1300 is not subarachnoid hemorrhage. Impression Primary Impression: Tonsillitis Additional Impression: Viral syndrome Scribe Attestation The scribe's documentation has been prepared under my direction and personally reviewed by me in its entirety. I confirm that the note above accurately reflects all work, treatment, procedures, and medical decision making performed by me. Departure Information Dispostion Home / Self-Care Prescriptions Cephalexin Monohydrate (Keflex) 500 Mg Cap 500 MG PO TID for 7 Days, #21 CAP Prov: Jorje Laura, DO 11/01/16 Referrals No Doctor, Assigned (PCP) Patient Instructions ED Pharyngitis Viral, [facility] Additional Instructions Please follow up with your primary care doctor or if you are a student [facility] with in the next 24 hours. Any worsening of your symptoms, please return to the ED immediately. This includes severe worsening of your headache, stiff neck, confusion or any other concerning signs or symptoms from your standpoint. Please take Tylenol or Motrin as needed for pain or fevers. Problem Qualifiers
== END 2016-11-01 01:35 | disposition home or self-care (01) ==
LOC: C.EDB 18:48 → C.EDC 11-01 01:35
DX: J03.90 Acute tonsillitis, unspecified (principal); B34.9 Viral infection, unspecified; Z83.3 Family history of diabetes mellitus; Z80.9 Family history of malignant neoplasm, unspecified; Z83.79 Family history of other diseases of the digestive system; Z82.49 Family history of ischemic heart disease and other diseases of the circulatory system; Z84.1 Family history of disorders of kidney and ureter; Z79.3 Long term (current) use of hormonal contraceptives

== ENCOUNTER 2016-11-04 09:58 | Emergency (ER) | payer OTHER ==
[~2016-11-04] VITALS: Ht 157.5 cm; Wt 53.3 kg
[~2016-11-04 09:58] MED LIST changes: -ACET-1256 PO; -AZITTAB PO; +BCPILLS PO; +CEPH500C PO; -DEXT1CAP8; +IBUP-103 PO
[2016-11-04 10:01] VITALS: TEMP 36.5; Ht 157.5 cm; Wt 53.3 kg
[2016-11-04] MEDS ORDERED: DiphenhydrAMINE HCL 50 MG/ML VIAL IV STA (10:30)
[2016-11-04] MEDS ORDERED: SODIUM CHLORIDE 0.9% 1000ML 1,000 ML IV STA (10:30)
[2016-11-04] MEDS ORDERED: MAGNESIUM SULFATE 1GM / D5W 1 GM in PREMIXED IN D5W 100 ML IV STA (10:30)
[2016-11-04] MEDS ORDERED: HYDROmorphone INJ 0.5 MG/0.5 ML SYR IV STA (10:30)
[2016-11-04] MEDS ORDERED: PROCHLORPERAZINE 5 MG/ML 2 ML VIAL IV STA (10:30)
--- NOTE | 2016-11-04 10:33 | EMERGENCY ROOM VISIT NOTE ---
History Report prepared by Dmitriy: Bhavna Canseco Under the Supervision of: Dr. Dionte Glaser M.D. First contact with patient: 10:24 Chief Complaint: HEADACHE Stated Complaint: SPINAL PERKINS, DIZZY, NAUSEA, VOMITING, SWEATING History of Present Illness The patient is a 20 year old female who presents to the Emergency Room with complaints of a persistent headache that began prior to arrival. She currently rates her discomfort as a 9/10 in severity. The patient states that she was evaluated in the emergency department on Thursday and had a lumbar puncture. She states that her pharyngitis symptoms have subsided, but notes that she is still experiencing pain. The patient reports that her headache is worsened when sitting up or standing up. She states that her pain is alleviated with lying down. The patient states that she has vomited twice. Source of History: patient Onset: prior to arrival Position: head Symptom Intensity: 9/10 Quality: ache Timing: other (persistent) Modifying Factors (Worsening): other (standing up, sitting up) Modifying Factors (Relieving): other (lying down) Associated Symptoms: + vomiting Review of Systems See HPI for pertinent positives & negatives. A total of 10 systems reviewed and were otherwise negative. Past Medical & Surgical Medical Problems: (1) History of ovarian cyst (2) No known health problems Family History Diabetes mellitus FH: cancer FH: gallbladder disease FH: heart disease Hypertension Kidney disease Social History Smoking Status: Never Smoker Marital Status: single Housing Status: lives with roommate Occupation Status: [employer] student Current/Historical Medications Scheduled Control Pills ( Control Pills), 1 TAB PO DAILY Cephalexin Monohydrate (Keflex), 500 MG PO TID Scheduled PRN Ibuprofen Tab (Advil), 400 MG PO Q6H PRN for Pain or Fever Allergies Coded Allergies: Amoxicillin (Verified Allergy, Unknown, HAD REACTION BEFORE 2 YR OLD, 07/31) Penicillins (Verified Allergy, Unknown, CHILDHOD REACTION, 07/31/16) Physical Exam Vital Signs Date Time Temp Pulse Resp B/P Pulse Ox O2 Delivery O2 Flow Rate FiO2 11/04/16 12:47 78 18 100/66 98 11/04/16 10:01 36.5 99 20 116/76 98 Room Air Physical Exam GENERAL: Patient is a healthy-appearing well-nourished HEAD: Normocephalic atraumatic EYES: Ocular movements intact pupils equal and react to light OROPHARYNX mucous membranes are moist no exudates present no erythema or edema present NECK: Supple no nuchal rigidity. No evidence of meningitis or encephalitis on exam. CHEST: Good equal expansion LUNGS: Clear and equal to auscultation CARDIAC: Normal S1 and S2 ABDOMEN: Soft nontender no guarding BACK: No CVA tenderness EXTREMITIES: No pain upon palpation normal muscle strength in all groups no clubbing cyanosis or edema NEURO: Patient is following commands is answering questions appropriately. Alert and oriented x3 Cranial Nerves 2-12 grossly intact Medical Decision & Procedures Laboratory Results 11/04/16 11:00 Red Blood Count 4.54, Mean Corpuscular Volume 88.5, Mean Corpuscular Hemoglobin 31.3, Mean Corpuscular Hemoglobin Concent 35.3, Mean Platelet Volume 9.9, Neutrophils (%) (Auto) 61.7, Lymphocytes (%) (Auto) 27.9, Monocytes (%) (Auto) 9.4, Eosinophils (%) (Auto) 0.2, Basophils (%) (Auto) 0.4, Neutrophils # (Auto) 3.00, Lymphocytes # (Auto) 1.36, Monocytes # (Auto) 0.46, Eosinophils # (Auto) 0.01, Basophils # (Auto) 0.02 11/04/16 11:00 Test 11/04/16 11:00 White Blood Count 4.87 K/uL (4.8-10.8) Red Blood Count 4.54 M/uL (4.2-5.4) Hemoglobin 14.2 g/dL (12.0-16.0) Hematocrit 40.2 % (37-47) Mean Corpuscular Volume 88.5 fL (80-100) Mean Corpuscular Hemoglobin 31.3 pg (25-34) Mean Corpuscular Hemoglobin Concent 35.3 g/dl (32-36) Platelet Count 187 K/uL (130-400) Mean Platelet Volume 9.9 fL (7.4-10.4) Neutrophils (%) (Auto) 61.7 % Lymphocytes (%) (Auto) 27.9 % Monocytes (%) (Auto) 9.4 % Eosinophils (%) (Auto) 0.2 % Basophils (%) (Auto) 0.4 % Neutrophils # (Auto) 3.00 K/uL (1.4-6.5) Lymphocytes # (Auto) 1.36 K/uL (1.2-3.4) Monocytes # (Auto) 0.46 K/uL (0.11-0.59) Eosinophils # (Auto) 0.01 K/uL (0-0.5) Basophils # (Auto) 0.02 K/uL (0-0.2) RDW Standard Deviation 39.5 fL (36.4-46.3) RDW Coefficient of Variation 12.3 % (11.5-14.5) Immature Granulocyte % (Auto) 0.4 % Immature Granulocyte # (Auto) 0.02 K/uL (0.00-0.02) Anion Gap 7.0 mmol/L (3-11) Est Creatinine Clear Calc Drug Dose 105.3 ml/min Estimated GFR () 147.0 Estimated GFR (Non- 126.8 BUN/Creatinine Ratio 13.4 (10-20) Calcium Level 9.2 mg/dl (8.5-10.1) Total Bilirubin 0.7 mg/dl (0.2-1) Direct Bilirubin 0.1 mg/dl (0-0.2) Aspartate Amino Transf (AST/SGOT) 16 U/L (15-37) Alanine Aminotransferase (ALT/SGPT) 19 U/L (12-78) Alkaline Phosphatase 60 U/L (45-117) Total Protein 7.9 gm/dl (6.4-8.2) Albumin 3.7 gm/dl (3.4-5.0) Lipase 136 U/L (73-393) Lyme Disease IgG Antibody NEG (NEG) Lyme Disease IgM Antibody NEG (NEG) Monoscreen NEG (NEG) Labs reviewed by ED physician. Medications Administered Medications (Trade) Dose Ordered Sig/Judy Route Start Time Stop Time Status Last Admin Dose Admin Sodium Chloride (Nss 1000ml) 1,000 ml @ 999 mls/hr Q1H1M STAT IV 11/04/16 10:30 11/04/16 11:30 DC 11/04/16 11:13 999 MLS/HR Prochlorperazine Edisylate (Compazine Inj) 10 mg NOW STAT IV 11/04/16 10:30 11/04/16 10:34 DC 11/04/16 11:12 10 MG Diphenhydramine HCl (Benadryl Inj) 50 mg NOW STAT IV 11/04/16 10:30 11/04/16 10:34 DC 11/04/16 11:14 50 MG Hydromorphone HCl 0.5 mg 0.5 mg NOW STAT IV 11/04/16 10:30 11/04/16 10:34 DC 11/04/16 11:14 0.5 MG Magnesium Sulfate/ Prmx (Magnesium Sulfate/Premixed D5W) 100 ml @ 100 mls/hr NOW STAT IV 11/04/16 10:30 11/04/16 11:29 DC 11/04/16 11:13 100 MLS/HR ED Course 1025: Past medical records reviewed. The patient was evaluated in room C9. A complete history and physical examination was performed. 1030: Ordered Magnesium Sulfate 1 gm/Prmx 100 ml @ 100 mls/hr IV, Dilaudid Inj 0.5 mg IV, Benadryl Inj 50 mg IV, Compazine Inj 10 mg IV, Sodium Chloride 1000 ml @ 999 mls/hr IV. 1035: I discussed the patients case with Dr. Rahman, Anesthesiologist. He is going to come do a blood patch for the patient. 1155: Per Dr. Rahman, Anesthesiologist the patient went over for the blood patch and refused. 1205: Ordered Toradol Inj 30 mg IV. 1224: I reevaluated the patient and she is feeling much better. I discussed the exam findings with her and I discussed the treatment plan. She verbalized complete understanding and agreement. She is ready to go home. Medical Decision Differential diagnosis: Etiologies such as migraine headache, meningitis, sinusitis, CO exposure, ICH, SAH, infection, tumor, headache, sinus thrombosis, arterial dissection, as well as others were entertained. This is a 20-year-old female who presents emergency department complaining of a post-spinal tap headache. The patient reports her headache worsens if she sits up or stands up. She has no evidence of meningitis or encephalitis on examination. I did discuss with this patient if she wish to have a blood patch performed by anesthesia which she initially agreed to. She was given an IV and given a normal saline bolus, Dilaudid, Compazine, Benadryl. Repeat examination revealed much improvement patient's symptoms. The patient was sent for a blood patch however upon arrival there she refused it. I do believe that the patient as well as to be discharged home for follow-up with [facility]. I encouraged patient to drink extra fluids as well as caffeine. Patient was in agreement with the treatment plan. Consults Time Called: 1032 Consulting Physician: Dr. Rahman, Anesthesiologist Returned Call: [phone] I discussed the patients case with Dr. Rahman, Anesthesiologist. He is going to come do a blood patch for the patient. Impression Primary Impression: Headache Scribe Attestation The scribe's documentation has been prepared under my direction and personally reviewed by me in its entirety. I confirm that the note above accurately reflects all work, treatment, procedures, and medical decision making performed by me. Departure Information Dispostion Home / Self-Care Referrals No Doctor, Assigned (PCP) Forms HOME CARE DOCUMENTATION FORM, IMPORTANT VISIT INFORMATION, School Instructions, Work Instructions Patient Instructions ED Headache Post Spinal Tap No Patc, Headache Pain, My [facility] Additional Instructions Increase fluids next 48 hours Add Caffeine to fluid intake Take 1000 mg Tylenol every 6 hours Take 600 mg Ibuprofen every 6 hours You have been examined and treated today on an emergency basis only. This is not a substitute for, or an effort to provide, complete comprehensive medical care. It is impossible to recognize and treat all injuries or illnesses in a single emergency department visit. It is therefore important that you follow up closely with [facility]. Call as soon as possible for an appointment. Thank you for your time and consideration. I look forward to speaking with you again soon. Please don't hesitate to call us if you have any questions. Problem Qualifiers Primary Impression: Headache Headache type: unspecified Headache chronicity pattern: unspecified pattern Intractability: not intractable Qualified Codes: R51 - Headache
[2016-11-04 11:19] LABS: BASO % 0.4 %; BASO ABS # 0.02 K/uL (0-0.2); COMPLETE YES; EOS % 0.2 %; HEMATOCRIT 40.2 % (37-47); IG% 0.4 %; LYMPH % 27.9 %; LYMPH ABS # 1.36 K/uL (1.2-3.4); MEAN CELL VOLUME 88.5 fL (80-100); MEAN CORPUSCULAR HEMOGLOBIN 31.3 pg (25-34); MEAN CORPUSCULAR HGB CONC 35.3 g/dl (32-36); MEAN PLATELET VOLUME 9.9 fL (7.4-10.4); MONO % 9.4 %; NEUT % 61.7 %; PLATELET COUNT 187 K/uL (130-400); RED BLOOD COUNT 4.54 M/uL (4.2-5.4); WHITE BLOOD COUNT 4.87 K/uL (4.8-10.8)
[2016-11-04 11:41] LABS: BUN/CREATININE RATIO 13.4 (10-20); CALCIUM 9.2 mg/dl (8.5-10.1); CREATININE 0.68 mg/dl (0.60-1.20)
[2016-11-04] MEDS ORDERED: DEXTROSE 5% IV ONE (12:00)
[2016-11-04] MEDS ORDERED: CAFFEINE CITRATE IV ONE (12:00)
[2016-11-04] MEDS ORDERED: KETOROLAC TROMETHAMINE 30 MG/ML VIAL IV STA (12:05)
[2016-11-04 12:26] LABS: LYME DISEASE AB IGG NEG (NEG)
[2016-11-04 12:27] LABS: LYME DISEASE AB IGM NEG (NEG)
[2016-11-04 12:47] VITALS: BP 100/66; PULSE 78; O2SAT 98
[2016-11-06 22:06] LABS: EBV EARLY ANTIGEN AB <0.91 INDEX; EPSTEIN BARR VIR CAPSID IGG <0.91 INDEX
== END 2016-11-04 12:49 | disposition home or self-care (01) ==
LOC: C.EDB 09:59 → C.EDC 12:49
DX: R51 Headache (principal); Z79.3 Long term (current) use of hormonal contraceptives; Z83.3 Family history of diabetes mellitus; Z80.9 Family history of malignant neoplasm, unspecified; Z82.49 Family history of ischemic heart disease and other diseases of the circulatory system; Z83.79 Family history of other diseases of the digestive system; Z84.1 Family history of disorders of kidney and ureter